=== PATIENT | female | born 2000 | race Caucasian/White ===

== ENCOUNTER 2019-04-15 03:29 | Emergency (ER) | payer BC ==
--- NOTE | 2019-04-15 03:57 | EDM.PDOC ---
ED HPI GENERAL MEDICAL PROBLEM - General Chief Complaint: Abdominal Pain Stated Complaint: ABDOMINAL PAIN Time Seen by Provider: 04/15/19 03:50 Source of Information: Reports: Patient History Limitations: Reports: No Limitations - History of Present Illness INITIAL COMMENTS - FREE TEXT/NARRATIVE: 18-year-old female with onset of nausea with vomiting 6 days ago on 04/09/2019. She developed diarrhea a day or 2 following this. She has persisted with vomiting and diarrhea until early morning when her diarrhea resolved and her vomiting seemed to be improving. However she continued to have vomiting yesterday and was feeling nauseated when she went to bed at approximately 10 PM last night approximately 2 AM she awoke with recurrent vomiting and then developed a sharp stabbing pain in her left lower abdomen at approximately 3 AM. Pain was nonradiating. The pain was rated by her as a 10/10. She has had no fevers. She's had no chills. She has had decreased oral intake over the past 6 days. She is on oral contraceptive pills. Her last menstrual area and ended on . She has had no abdominal pain prior to today. She has no flank or back pain. There is been no hematuria or dysuria. There are no other associated signs or symptoms. There are no other modifying factors. Onset: Today (Left lower quadrant pain began at 3 AM today. Vomiting began 6 days ago) Duration: Constant Location: Reports: Abdomen (Left lower quadrant) Quality: Reports: Sharp, Stabbing Severity: Severe Improves with: Reports: None Worsens with: Reports: Other (Palpation), Movement Context: Reports: Other (Began after a vomiting episode tonight.) Associated Symptoms: Reports: Loss of Appetite, Nausea/Vomiting Treatments OSTEOPATHIC RESIDENT: Reports: Other (see below) (Nothing. The patient sought no medical attention before tonight.) left lower abdomen Pain Score (Numeric/FACES): 10 - Related Data Allergies Allergy/AdvReac Type Severity Reaction Status Date / Time No Known Allergies Allergy Verified 04/15/19 03:38 Home Meds: Home Meds Desogestrel-Ethinyl Estradiol [Mareber 28 Day Tablet] 1 tab PO DAILY 04/15/19 [ History] Ondansetron [Zofran ODT] 4 mg PO Q6H PRN #10 tab.dis 04/15/19 [Rx] buPROPion [buPROPion XL] 300 mg PO DAILY 04/15/19 [History] Past Medical History Psychiatric History: Reports: Anxiety, Depression - Past Surgical History HEENT Surgical History: Reports: Oral Surgery ([place] teeth extraction) Social & Family History - Tobacco Use Smoking Status *Q: Never Smoker Second Hand Smoke Exposure: No - Caffeine Use Caffeine Use: Reports: None - Alcohol Use Alcohol Use History: No - Recreational Drug Use Recreational Drug Use: No - Living Situation & Occupation Occupation: Employed (At [employer] Social History Comment: She is here with her boyfriend and with her mother. ED ROS GENERAL - Review of Systems Review Of Systems: See Below Constitutional: Reports: No Symptoms HEENT: Reports: Other (Dry mouth) Respiratory: Reports: No Symptoms Cardiovascular: Reports: No Symptoms GI/Abdominal: Reports: Abdominal Pain, Nausea, Vomiting : Reports: No Symptoms Musculoskeletal: Reports: No Symptoms Skin: Reports: No Symptoms Neurological: Reports: No Symptoms Hematologic/Lymphatic: Reports: No Symptoms Immunologic: Reports: No Symptoms ED EXAM, GI/ABD - Physical Exam Exam: See Below Exam Limited By: No Limitations General Appearance: Alert, WD/WN, Moderate Distress Eyes: Bilateral: Normal Appearance, EOMI Ears: Normal External Exam Nose: Normal Inspection, Normal Mucosa, No Blood Throat/Mouth: Normal Voice, No Airway Compromise, Other (Dry mucous membranes) Head: Atraumatic, Normocephalic Neck: Normal Inspection, Supple, Non-Tender, Full Range of Motion Respiratory/Chest: No Respiratory Distress, Lungs Clear, Normal Breath Sounds, No Accessory Muscle Use, Chest Non-Tender Cardiovascular: Normal Peripheral Pulses, No Murmur, Tachycardia GI/Abdominal Exam: Soft, No Distention, No Mass, Tender (And left lower quadrant ), Abnormal Bowel Sounds (Decreased) Back Exam: Normal Inspection Extremities: Normal Inspection, Normal Range of Motion, Non-Tender, No Pedal Edema, Normal Capillary Refill Neurological: Alert, Oriented, CN II-XII Intact, Normal Cognition, No Motor/ Sensory Deficits Psychiatric: Anxious Skin Exam: Warm, Dry, Intact, Normal Color, No Rash Course - Vital Signs Last Recorded V/S: Last Vital Signs Temp 36.8 C 04/15/19 03:40 Pulse 109 H 04/15/19 05:08 Resp 16 04/15/19 05:08 BP 126/77 04/15/19 05:08 Pulse Ox 99 04/15/19 05:08 - Orders/Labs/Meds Orders: Active Orders 24 hr Category Date Time Status Abdomen Pelvis wo Cont [CT] Stat Exams 04/15/19 05:34 Taken Sodium Chloride 0.9% [Normal Saline] 1,000 ml Med 04/15/19 06:00 Active IV ASDIRECTED Sodium Chloride 0.9% [Saline Flush] Med 04/15/19 04:18 Active 10 ml FLUSH ASDIRECTED PRN Peripheral IV Insertion Adult [OM.PC] Routine Oth 04/15/19 04:18 Ordered Medication Orders Sodium Chloride (Normal Saline) 1,000 mls @ 250 mls/hr IV ASDIRECTED JAYNA Last Admin: 04/15/19 05:53 Dose: 250 mls/hr Sodium Chloride (Saline Flush) 10 ml FLUSH ASDIRECTED PRN PRN Reason: Keep Vein Open Labs: Laboratory Tests 04/15/19 04/15/19 04/15/19 Range/Units 04:35 04:35 04:35 WBC 10.1 (4.5-12.0) X10-3/uL RBC 4.94 (3.23-5.20) x10(6)uL Hgb 14.0 (11.5-15.5) g/dL Hct 42.0 (30.0-51.3) % MCV 85.0 (80-96) fL MCH 28.2 (27.7-33.6) pg MCHC 33.2 (32.2-35.4) g/dL RDW 12.6 (11.5-15.5) % Plt Count 290 (125-369) X10(3)uL MPV 8.3 (7.4-10.4) fL Neut % (Auto) 66.1 (46-82) % Lymph % (Auto) 23.3 (13-37) % Bucks % (Auto) 9.6 (4-12) % Eos % (Auto) 1 (1.0-5.0) % Baso % (Auto) 0 (0-2) % Neut # (Auto) 6.7 (1.6-8.3) # Lymph # (Auto) 2.3 (0.6-5.0) # Bucks # (Auto) 1.0 (0.0-1.3) # Eos # (Auto) 0.1 (0.0-0.8) # Baso # (Auto) 0.0 (0.0-0.2) # Sodium 139 (135-145) mmol/L Potassium 3.9 (3.5-5.3) mmol/L Chloride 103 (100-110) mmol/L Carbon Dioxide 26 (21-32) mmol/L BUN 9 (7-18) mg/dL Creatinine 0.8 (0.55-1.02) mg/dL Est Cr Clr Drug Dosing 96.86 mL/min Estimated GFR (MDRD) > 60 (>60) BUN/Creatinine Ratio 11.3 (9-20) Glucose 109 (80-116) mg/dL Calcium 9.4 (8.6-10.2) mg/dL Total Bilirubin 0.3 (0.1-1.3) mg/dL AST 21 (5-25) IU/L ALT 35 (12-36) U/L Alkaline Phosphatase 89 (56-112) IU/L C-Reactive Protein 0.6 (0.5-0.9) mg/dL Total Protein 8.4 H (6.0-8.0) g/dL Albumin 3.8 (3.5-5.2) g/dL Globulin 4.6 g/dL Albumin/Globulin Ratio 0.8 Amylase 43 (25-115) U/L Urine Color (YELLOW) Urine Appearance (CLEAR) Urine pH (5.0-6.5) Ur Specific [place] (1.010-1.025) Urine Protein (NEGATIVE) mg/dL Urine Glucose (UA) (NORMAL) mg/dL Urine Ketones (NEGATIVE) mg/dL Urine Occult Blood (NEGATIVE) Urine Nitrite (NEGATIVE) Urine Bilirubin (NEGATIVE) Urine Urobilinogen (NEGATIVE) mg/dL Ur Leukocyte Esterase (NEGATIVE) Urine RBC (0-5) Urine WBC (0-5) Ur Squamous Epith Cells (NS,R,O) Urine Bacteria (NS) Urine Mucus (NS) Urine HCG, Qual (NEGATIVE) 04/15/19 04/15/19 Range/Units 05:08 05:08 WBC (4.5-12.0) X10-3/uL RBC (3.23-5.20) x10(6)uL Hgb (11.5-15.5) g/dL Hct (30.0-51.3) % MCV (80-96) fL MCH (27.7-33.6) pg MCHC (32.2-35.4) g/dL RDW (11.5-15.5) % Plt Count (125-369) X10(3)uL MPV (7.4-10.4) fL Neut % (Auto) (46-82) % Lymph % (Auto) (13-37) % Bucks % (Auto) (4-12) % Eos % (Auto) (1.0-5.0) % Baso % (Auto) (0-2) % Neut # (Auto) (1.6-8.3) # Lymph # (Auto) (0.6-5.0) # Bucks # (Auto) (0.0-1.3) # Eos # (Auto) (0.0-0.8) # Baso # (Auto) (0.0-0.2) # Sodium (135-145) mmol/L Potassium (3.5-5.3) mmol/L Chloride (100-110) mmol/L Carbon Dioxide (21-32) mmol/L BUN (7-18) mg/dL Creatinine (0.55-1.02) mg/dL Est Cr Clr Drug Dosing mL/min Estimated GFR (MDRD) (>60) BUN/Creatinine Ratio (9-20) Glucose (80-116) mg/dL Calcium (8.6-10.2) mg/dL Total Bilirubin (0.1-1.3) mg/dL AST (5-25) IU/L ALT (12-36) U/L Alkaline Phosphatase (56-112) IU/L C-Reactive Protein (0.5-0.9) mg/dL Total Protein (6.0-8.0) g/dL Albumin (3.5-5.2) g/dL Globulin g/dL Albumin/Globulin Ratio Amylase (25-115) U/L Urine Color Yellow (YELLOW) Urine Appearance Clear (CLEAR) Urine pH 5.0 (5.0-6.5) Ur Specific [place] 1.020 (1.010-1.025) Urine Protein Negative (NEGATIVE) mg/dL Urine Glucose (UA) Normal (NORMAL) mg/dL Urine Ketones 15 H (NEGATIVE) mg/dL Urine Occult Blood Negative (NEGATIVE) Urine Nitrite Negative (NEGATIVE) Urine Bilirubin Small H (NEGATIVE) Urine Urobilinogen Normal (NEGATIVE) mg/dL Ur Leukocyte Esterase Negative (NEGATIVE) Urine RBC 0-5 (0-5) Urine WBC 0-5 (0-5) Ur Squamous Epith Cells Few H (NS,R,O) Urine Bacteria Few H (NS) Urine Mucus Few H (NS) Urine HCG, Qual Negative (NEGATIVE) Meds: Medications Generic Name Dose Route Start Last Admin Trade Name Freq PRN Reason Stop Dose Admin Sodium Chloride 1,000 mls @ 250 mls/hr 04/15/19 06:00 04/15/19 05:53 Normal Saline IV 250 mls/hr ASDIRECTED JAYNA Administration Sodium Chloride 10 ml 04/15/19 04:18 Saline Flush FLUSH ASDIRECTED PRN Keep Vein Open Discontinued Medications Generic Name Dose Route Start Last Admin Trade Name Freq PRN Reason Stop Dose Admin Fentanyl 50 mcg 04/15/19 04:20 04/15/19 04:40 Sublimaze IVPUSH 04/15/19 04:21 50 mcg ONETIME ONE Administration Promethazine HCl 25 mg/ Sodium 51 mls @ 200 mls/hr 04/15/19 04:19 04/15/19 04 :41 Chloride IV 04/15/19 04:34 200 mls/hr ONETIME ONE Administration Sodium Chloride 1,000 mls @ 999 mls/hr 04/15/19 04:19 04/15/19 04:35 Normal Saline IV 04/15/19 05:19 999 mls/hr .BOLUS ONE Administration Ketorolac Tromethamine 30 mg 04/15/19 06:20 04/15/19 06:38 Toradol IVPUSH 04/15/19 06:21 30 mg ONETIME ONE Administration Morphine Sulfate 4 mg 04/15/19 05:14 04/15/19 05:19 Morphine IVPUSH 04/15/19 05:15 4 mg ONETIME ONE Administration - Radiology Interpretation Free Text/Narrative:: CT scan of the abdomen and pelvis shows no acute abnormality within the abdomen or pelvis. There was a 1.2 cm nodular opacity in the left lower lobe of the lung of unclear etiology. This [facility]. - Re-Assessments/Exams Free Text/Narrative Re-Assessment/Exam: 04/15/19 05:05: Not much relief from the fentanyl IV. Pain still rated as a 9/ 10. Blood tests thus far are reassuringly normal. No further emesis. Awaiting results of catheterized urine specimen just recently obtained. Patient has remained vitally stable. Will give patient a dose of morphine 04/15/19 05:35: Pain is now down to a 3/10. Urine test was negative. Urinalysis shows some blood. Because of concern of kidney stone and the patient' s level of pain, feels CT of abdomen and pelvis would be appropriate testing. I discussed this with the patient and the patient's mother and they are in agreement with the plans for seeding with this testing. 04/15/19 06:22: Patient is asleep and when awakened rates her pain as a 0/10 but still has pain with palpation. CT scan of abdomen and pelvis without IV contrast has been performed and I am awaiting the results. Treat the patient with Toradol 30 mg IV. 04/15/19 06:49: CT scan of abdomen and pelvis shows no acute abnormality in the abdomen or pelvis. There is a 1.2 cm nodular opacity in the left lower lobe of the that was felt to be an inflammatory process and possibly an infectious process. The patient has no cough or pulmonary symptoms. The patient is asleep but awakens easily and reports no pain. She has very mild pain with palpation in her left lower quadrant. I discussed the findings with the patient's mother and her significant other (with the patient's consent) as the patient was somnolent. The patient will be discharged with prescription for Zofran. She will be told to take ibuprofen and Tylenol for her pain. She is told to follow- up with her primary doctor in regard to the left lower lobe pulmonary nodule. Departure - Departure Time of Disposition: 07:00 Disposition: Home, Self-Care 01 Condition: Good (Improved) Clinical Impression: Pelvic pain, Dehydration, Lung nodule < 6cm on CT Vomiting Qualifiers: Vomiting type: unspecified Vomiting Intractability: non-intractable Nausea presence: with nausea Qualified Code(s): R11.2 - Nausea with vomiting, unspecified - Discharge Information Prescriptions: Ondansetron [Zofran ODT] 4 mg PO Q6H PRN #10 tab.dis PRN Reason: Nausea/Vomiting Instructions: Pelvic Pain, Female, [id number], Dehydration, Adult, Easy-to- Read, Nausea and Vomiting, Adult, [id number] Referrals: Ani Rush NP [Primary Care Provider] - Forms: ED Department Discharge Additional Instructions: Your blood tests were reassuringly normal. Your urine test was normal. Your test was negative. The CT scan of your abdomen and pelvis showed no acute abnormality in the abdomen or pelvis. You improved after the IV fluids and the pain medication. You did appear to be somewhat dehydrated. You did have a nodule in the left lower lung. I am unsure of the cause of this nodule. I do not feel that it is related to your symptoms today. You will need to follow-up with your primary doctor about this nodule for recheck and possible further evaluation. I am also unsure of the cause of your left lower abdominal pain. I think that it is quite likely this pain was due to a ruptured ovarian cyst You should rest. You should drink plenty of fluids. Stick with liquids for the next 12 hours and then advance your diet slowly as tolerated. Medication as prescribed for nausea (Zofran 4 mg ODT). Take Tylenol and ibuprofen as needed for pain. Back to the emergency department for marked increase in pain, high fever, unrelenting vomiting or any other concerning sign or symptom. - My Orders Last 24 Hours: My Active Orders 04/15/19 04:18 Sodium Chloride 0.9% [Saline Flush] 10 ml FLUSH ASDIRECTED PRN Peripheral IV Insertion Adult [OM.PC] Routine 04/15/19 05:34 Abdomen Pelvis wo Cont [CT] Stat 04/15/19 06:00 Sodium Chloride 0.9% [Normal Saline] 1,000 ml IV ASDIRECTED - Assessment/Plan Last 24 Hours: My Active Orders 04/15/19 04:18 Sodium Chloride 0.9% [Saline Flush] 10 ml FLUSH ASDIRECTED PRN Peripheral IV Insertion Adult [OM.PC] Routine 04/15/19 05:34 Abdomen Pelvis wo Cont [CT] Stat 04/15/19 06:00 Sodium Chloride 0.9% [Normal Saline] 1,000 ml IV ASDIRECTED
[2019-04-15] MEDS ORDERED: Sodium Chloride 0.9% 10 ML Syringe FLUSH PRN (04:18)
[2019-04-15] MEDS ORDERED: Sodium Chloride 0.9% 1,000 ML IV ONE (04:19)
[2019-04-15] MEDS ORDERED: Promethazine 25 MG in Sodium Chloride 0.9% 50 ML IV ONE (04:19)
[2019-04-15] MEDS ORDERED: fentaNYL 100 MCG/2 ML SDV IVPUSH ONE (04:20)
[2019-04-15] MEDS ORDERED: Morphine 4 MG/ML Syringe IVPUSH ONE (05:14)
[2019-04-15] MEDS ORDERED: Sodium Chloride 0.9% 1,000 ML IV SCH (06:00)
[2019-04-15] MEDS ORDERED: Ketorolac 30 MG/ML SDV IVPUSH ONE (06:20)
--- NOTE | 2019-04-18 13:28 | CT ---
INDICATION: Mid-to left chest pain. Pain extends into lungs. D-dimer minimally elevated at 0.65. COMPUTERIZED TOMOGRAPHY ANGIOGRAPHY OF THE CHEST WITH CONTRAST: Spiral 2.5 mm axial sections were obtained through the chest with 100 ml Isovue (370 at 3 cc per second) with sagittal and coronal reconstructions 04/18/19--no comparisons. There is compared with a previous CT of the abdomen including portion of the chest, of 09/19/2008. Some minimal heavy markings in the lingula could represent interval fibrosis. A very minimal area of patchy pneumonia could not be entirely excluded with this appearance--correlate clinically. Total exam DLP = 1097.36 mGy-cm. No evidence of pulmonary embolus could be identified. The pulmonary arteries, however, were not ideally opacified with IV contrast. The upper abdomen included on this study showed no gross abnormality. IMPRESSION: 1. No definite evidence of pulmonary emboli identified, although less than ideal contrast enhancement of the pulmonary arteries is noted. 2. Minimal heavy markings in the lingula could represent a minimal degree of patchy pneumonia and/or fibrosis not present on the previous CT scan of the abdomen dated 09/19/2008. Report was called to Melissa Kapadia NP at 1245 hours. MTDD
== END 2019-04-15 07:18 | disposition home or self-care (01) ==
LOC: FB.ED 03:29
DX: E86.0 Dehydration (principal); R11.2 Nausea with vomiting, unspecified; R10.2 Pelvic and perineal pain; R91.1 Solitary pulmonary nodule; F41.9 Anxiety disorder, unspecified; F32.9 Major depressive disorder, single episode, unspecified; Z79.3 Long term (current) use of hormonal contraceptives; Z79.899 Other long term (current) drug therapy
CPT/HCPCS: 36415; 74176; 80053; 81001; 81025; 82150; 85025; 86140; 96361; 96365; 96375; 99284; J1885; J2270; J2550; J3010; J7030; J7050

== ENCOUNTER 2019-04-25 15:35 | Day surgery (SDC) | payer BC ==
[~2019-04-25 15:35] MED LIST: Lactated Ringers 1,000 ML IV SCH; Sodium Chloride 0.9% 10 ML Syringe FLUSH PRN
[2019-04-25] MEDS ORDERED: Propofol 200 MG/20 ML SDV IV ONE (15:36)
[2019-04-25] MEDS ORDERED: HYDROmorphone 2 MG/ML SDV IV ONE (15:36)
[2019-04-25] MEDS ORDERED: Sugammadex Sodium 200 MG/2 ML VIAL IV ONE (15:36)
[2019-04-25] MEDS ORDERED: Ketorolac 30 MG/ML SDV IVPUSH ONE (15:36)
[2019-04-25] MEDS ORDERED: fentaNYL 100 MCG/2 ML SDV IV ONE (15:36)
[2019-04-25] MEDS ORDERED: Acetaminophen/HYDROcodone 325-5 MG Tab PO ONE ×2 (15:36→22:35)
[2019-04-25] MEDS ORDERED: Lidocaine 2% 100 MG/5 ML Syringe IVPUSH ONE (15:36)
[2019-04-25] MEDS ORDERED: Neostigmine Methylsulfate 10 MG/10 ML MDV IVPUSH ONE (15:36)
[2019-04-25] MEDS ORDERED: Dexamethasone 4 MG/ML 5 ML MDV IVPUSH ONE (15:36)
[2019-04-25] MEDS ORDERED: Rocuronium 50 MG/5 ML Vial IV ONE (15:36)
[2019-04-25] MEDS ORDERED: Lactated Ringers 1,000 ML IV ONE (15:36)
[2019-04-25] MEDS ORDERED: Ondansetron 4 MG/2 ML SDV IVPUSH ONE (15:36)
[2019-04-25] MEDS ORDERED: Glycopyrrolate 0.2 MG/ML 5 ML MDV IV ONE (15:36)
[2019-04-25] MEDS ORDERED: Diazepam 10 MG Tab PO ONE (16:24)
[2019-04-25] MEDS ORDERED: Bupivacaine 0.5%/EPINEPHrine 1:200,000 50 ML MDV INJECT ONE (16:27)
[2019-04-25] MEDS ORDERED: ceFAZolin 1 GM Vial IVPUSH ONE (17:00)
[2019-04-25] MEDS ORDERED: ceFAZolin 1 GM in Sodium Chloride 0.9% 50 ML IV ONE (17:00)
--- NOTE | 2019-04-25 17:11 | PCM.PN ---
- General Info Date of Service: 04/25/19 - Review of Systems Systems Review Comment:: Patient with gallbladder sludge and abdominal pain here for cholecystectomy. She is stable to proceed with no significant changes from visit earlier today. She agrees to proceed with cholecystectomy. - Patient Data Vitals - Most Recent: Last Vital Signs Temp 98.1 F 04/25/19 16:23 Pulse 108 H 04/25/19 16:23 Resp 18 04/25/19 16:23 BP 126/71 04/25/19 16:23 Pulse Ox 99 04/25/19 16:23 Weight - Most Recent: 127 lb 4.8 oz I&O - Last 24 Hours: Intake & Output 04/25/19 04/25/19 04/25/19 06:59 14:59 22:59 Intake Total 0 Balance 0 Med Orders - Current: Current Medications Lactated Ringer's (Ringers, Lactated) 1,000 mls @ 125 mls/hr IV ASDIRECTED JAYNA Sodium Chloride (Saline Flush) 10 ml FLUSH ASDIRECTED PRN PRN Reason: Keep Vein Open Discontinued Medications Bupivacaine HCl/Epinephrine Bitart (Marcaine 0.5%/Epinephrine 1:200,000) 12 ml INJECT .STK-MED ONE Stop: 04/25/19 16:28 Last Admin: 04/25/19 16:27 Dose: 12 ml Cefazolin Sodium (Ancef) 1 gm IVPUSH ONETIME ONE Stop: 04/25/19 17:01 Diazepam (Valium) 10 mg PO ONETIME ONE Stop: 04/25/19 16:25 Last Admin: 04/25/19 16:44 Dose: 10 mg - Problem List Review Problem List Initiated/Reviewed/Updated: Yes - My Orders Last 24 Hours: My Active Orders 04/25/19 10:38 Resuscitation Status Routine 04/25/19 15:30 Patient Status [ADT] Routine Patient to Empty Bladder [RC] ASDIRECTED RT Incentive Spirometry [RC] ASDIRECTED Verify Patient Consent Obtain [RC] ASDIRECTED HCG QUALITATIVE,URINE [URCHEM] Routine Lactated Ringers [Ringers, Lactated] 1,000 ml IV ASDIRECTED Sodium Chloride 0.9% [Saline Flush] 10 ml FLUSH ASDIRECTED PRN Peripheral IV Insertion Adult [OM.PC] Routine Sequential Compression Device [OM.PC] Routine 04/25/19 Breakfast Nothing Per Oral Diet [DIET] - Assessment Assessment:: Gallbladder Sludge Abdominal Pain - Plan Plan:: Cholecystectomy
--- NOTE | 2019-04-25 18:47 | PCM.OPNOTE ---
- General Post-Op/Procedure Note Date of Surgery/Procedure: 04/25/19 Operative Procedure(s): Laparoscopic Cholecystectomy Findings: Externally normal appearing gallbladder and liver Pre Op Diagnosis: Gallbaldder Sludge Post-Op Diagnosis: Same Anesthesia Technique: General ET Tube Primary Surgeon: Sixto Corona Pathology: Gallbladder Output, Urine Amount: 0 EBL in mLs: 10 Complications: None Condition: Good Free Text/Narrative:: Intake & Output 04/25/19 04/25/19 04/25/19 06:59 14:59 22:59 Intake Total 0 Balance 0
--- NOTE | 2019-04-26 00:46 | OR ---
DATE OF OPERATION: 04/25/2019 SURGEON: Sixto Corona MD PREOPERATIVE DIAGNOSIS: Abdominal pain with gallbladder sludge. POSTOPERATIVE DIAGNOSIS: Abdominal pain with gallbladder sludge. OPERATION PERFORMED: Laparoscopic cholecystectomy. INDICATIONS FOR SURGERY: This 18-year-old female has been having symptoms of abdominal pain and nausea for approximately the last 2 weeks. She was found on workup to have sludge in her gallbladder, which was felt to be contributing to her symptoms and she comes for cholecystectomy. FINDINGS: The patient's gallbladder appears normal externally and her liver also appears normal. No gross abnormalities were noted to the organs as viewed laparoscopically. PROCEDURE IN DETAIL: The patient was taken to the operating room. She was given general endotracheal anesthesia and the abdomen was sterilely prepped and draped. An infraumbilical stab wound incision was made. Through this, a Veress needle was inserted and pneumoperitoneum via this needle to a pressure of 15 mmHg was achieved with carbon dioxide. The Veress needle was then replaced with a 12 mm trocar into which the 5 mm 0 degree laparoscopic camera was inserted. Under direct visualization, 5 mm trocars were placed in the subxiphoid midline and in 2 areas of the right abdomen. All trocar sites were infiltrated with Marcaine prior to incision. Intraabdominal and pelvic inspection was carried out and attention was turned to the gallbladder. It was secured with grasping forceps, placed through the lateral trocars and retracted superiorly and anteriorly. Fatty tissue and peritoneum overlying the cystic duct and cystic artery were carefully cleared. The triangle of Calot is dissected clear until the cystic artery is clearly exposed. It was then doubly clipped and divided. The cystic duct is clearly visualized and with a clear triangle of [place]ot visualized and no sign of any complication. The cystic duct was milked and it too was doubly clipped and divided near the gallbladder with great care being used to avoid any injury or compromise to the common bile duct. The gallbladder was then dissected free from the undersurface of the liver using the hook cautery device. Once the gallbladder had been freed, it was extracted without difficulty through the umbilical trocar site. Reinspection of the gallbladder bed showed no sign of bleeding or any other complication. The trocars were removed under direct visualization and the pneumoperitoneum was evacuated. The fascia of the umbilical trocar site was closed with a [id number] 0 Vicryl suture. The wounds were irrigated with Betadine and saline solution. Skin incisions approximated with interrupted 4-0 Vicryl in a subcuticular stitch. Steri-Strips and benzoin were applied. Antibiotic ointment and sterile dressings were placed. The patient was awakened, extubated, and taken from the operating room in satisfactory condition. ESTIMATED BLOOD LOSS: Less than 10 mL. COMPLICATIONS: None. PROGNOSIS: Good. /[id number] ROSA/JADYN POLO
== END 2019-04-26 03:18 ==
LOC: FB.MS 15:35 → FB.SDS 15:35 → FB.MS 15:36 → FB.SDS 04-26 03:18
PROVIDERS: ATTEND Surgery
DX: K81.1 Chronic cholecystitis (principal); F41.9 Anxiety disorder, unspecified; F41.0 Panic disorder [episodic paroxysmal anxiety]; Z79.899 Other long term (current) drug therapy
CPT/HCPCS: 47562; 88304; A9270; J0690; J1100; J1170; J1885; J2001; J2405; J2704; J2710; J3010; J3490; J7120